=== PATIENT | male | born 1985 | race Caucasian/White ===

== ENCOUNTER 2020-11-07 16:57 | Inpatient (IN) | payer OTHER ==
[2020-11-07 20:46] VITALS: BMI 21.0
[2020-11-07] MEDS ORDERED: MENTHOL/PHENOL 1 EACH UD MM PRN (21:00)
[2020-11-07] MEDS ORDERED: NICOTINE POLACRILEX 2 MG GUM BUC PRN (21:00)
[2020-11-07] MEDS ORDERED: METHOCARBAMOL 500 MG TABLET PO PRN (21:00)
[2020-11-07] MEDS ORDERED: MAGNESIUM CITRATE 300 ML BOTTLE PO PRN (21:00)
[2020-11-07] MEDS ORDERED: IBUPROFEN 400 MG TABLET (FP) PO PRN (21:00)
[2020-11-07] MEDS ORDERED: ACETAMINOPHEN 325 MG TABLET (FP) PO PRN ×2 (21:00)
[2020-11-07] MEDS ORDERED: ONDANSETRON *ODT* 4 MG TABLET SL PRN (21:00)
[2020-11-07] MEDS ORDERED: BISMUTH SUBSALICYLATE 524 MG/30 ML PO PRN (21:00)
[2020-11-07] MEDS ORDERED: MAGNESIUM HYDROX 2400MG/30ML ORAL SUSPENSION 30 ML CUP PO PRN (21:00)
[2020-11-07] MEDS ORDERED: MAG HYDROX/AL HYDROX/SIMETH 30 ML UNIT-DOSE CUP PO PRN (21:00)
[2020-11-07] MEDS ORDERED: THIAMINE HCL 100 MG TABLET (FP) PO SCH (22:00)
[2020-11-07] MEDS ORDERED: MELATONIN 5 MG TABLETS PO SCH (22:00)
[2020-11-08] MEDS ORDERED: METHADONE HCL 5 MG TABLET PO SCH (08:15)
[2020-11-08] MEDS ORDERED: NICOTINE 14 MG/24 HOURS TOPICAL PATCH TD SCH (10:00)
[2020-11-08] MEDS ORDERED: PRENATAL VITAMINS W/ FOLIC ACID TABLET (FP) PO SCH (10:00)
[2020-11-08 10:47] LABS: HEMOGLOBIN 15.7 GM/dL (11.7-16.9); MCH 32.7 pg (25.7-33.7); MCHC 33.5 g/dl (32.0-35.9); MEAN CELL VOLUME 97.6 fl (80-96); PLATELET COUNT 195 10^3/uL (134-434); RBC 4.82 M/mm3 (4.00-5.60); RDW 13.5 % (11.9-15.9); WHITE BLOOD COUNT 5.9 K/mm3 (4.0-10.0)
[2020-11-08 10:48] LABS: ALBUMIN 3.5 g/dl (3.4-5.0); CALCIUM 8.6 mg/dL (8.5-10.1)
[2020-11-08 10:49] LABS: BLOOD UREA NITROGEN 15.4 mg/dL (7-18)
[2020-11-08 10:52] LABS: CREATININE 0.6 mg/dL (0.55-1.3)
[2020-11-08 10:53] LABS: BILIRUBIN,TOTAL 0.5 mg/dL (0.2-1)
[2020-11-08 13:17] VITALS: BP 116/72; PULSE 64; TEMP 96.1
== END 2020-11-08 13:42 | disposition home or self-care (01) | DRG 773 ==
LOC: YASAS 16:57 → UNDOADMIN 20:39 → Y3N 20:39
PROVIDERS: ADMIT Allergy & Immunology; ATTEND Allergy & Immunology
PROC: HZ2ZZZZ Detoxification Services for Substance Abuse Treatment (ICD-10-PCS; principal; 2020-11-07)
DX: F10.20 Alcohol dependence, uncomplicated (principal); F11.20 Opioid dependence, uncomplicated; F17.210 Nicotine dependence, cigarettes, uncomplicated; J42 Unspecified chronic bronchitis; J45.909 Unspecified asthma, uncomplicated; Z88.0 Allergy status to penicillin
CPT/HCPCS: 36415; 80053; 85027; 86780; 93005; 93010; C9803; U0003; U0005

== ENCOUNTER 2022-06-06 02:01 | Emergency (ER) | payer OTHER ==
[2022-06-06 02:10] VITALS: BP 119/73; PULSE 105; RESP 18; TEMP 97.6; BMI 23.0
[2022-06-06] MEDS ORDERED: TETANUS AND DIPHTHERIA TOXOID 0.5 ML DISP.SYRIN IM ONE (02:23)
[2022-06-06] MEDS ORDERED: DIPHTH,PERTUSS(ACELL),TET 0.5 ML DISP.SYRIN IM ONE (02:28)
== END 2022-06-06 02:46 | disposition left against medical advice (07) ==
LOC: JER 02:01
PROC: 3E0234Z Introduction of Serum, Toxoid and Vaccine into Muscle, Percutaneous Approach (ICD-10-PCS; principal; 2022-06-06)
DX: S81.811A Laceration without foreign body, right lower leg, initial encounter (principal); Y99.9 Unspecified external cause status
CPT/HCPCS: 99282-25

== ENCOUNTER 2022-06-06 02:54 | Emergency (ER) | payer OTHER ==
[2022-06-06 03:52] VITALS: BP 142/89; PULSE 75; RESP 18; TEMP 97.6; BMI 23.7
== END 2022-06-06 03:50 | disposition home or self-care (01) ==
LOC: JER 02:54
PROC: 0HQKXZZ Repair Right Lower Leg Skin, External Approach (ICD-10-PCS; principal; 2022-06-06)
DX: S81.811A Laceration without foreign body, right lower leg, initial encounter (principal); W26.0XXA Contact with knife, initial encounter
CPT/HCPCS: 99282-25

== ENCOUNTER 2023-09-11 13:25 | Emergency (ER) | payer OTHER ==
[2023-09-11 14:35] VITALS: TEMP 97.8; BMI 22.3
[2023-09-11 15:00] LABS: BASO % 0.5 % (0-2.0); EOS % 1.7 % (0-4.5); HEMOGLOBIN 15.2 GM/dL (11.7-16.9); LYMPH % 16.6 % (8-40); MCH 31.8 pg (25.7-33.7); MCHC 33.8 g/dl (32.0-35.9); MEAN CELL VOLUME 94.2 fl (80-96); MEAN PLT VOLUME 8.1 fl (7.5-11.1); MONO % 7.8 % (3.8-10.2); NEUT % 73.4 % (42.8-82.8); PLATELET COUNT 339 10^3/uL (134-434); RBC 4.77 M/mm3 (4.00-5.60); RDW 13.5 % (11.9-15.9); WHITE BLOOD COUNT 12.2 K/mm3 (4.0-10.0)
[2023-09-11 15:04] LABS: INR 0.99 (0.83-1.09); PROTHROMBIN TIME (PATIENT) 11.2 SEC (9.7-13.0)
[2023-09-11 15:07] LABS: ACTIVATED PTT 27.6 SECONDS (25.2-36.5)
[2023-09-11 15:16] LABS: POTASSIUM 4.1 mmol/L (3.5-5.1)
[2023-09-11 15:18] LABS: CALCIUM 9.3 mg/dL (8.5-10.1)
[2023-09-11 15:19] LABS: ALBUMIN 3.6 g/dl (3.4-5.0); BLOOD UREA NITROGEN 12.5 mg/dL (7-18); MAGNESIUM 2.2 mg/dL (1.8-2.4)
[2023-09-11 15:22] LABS: CREATININE 1.1 mg/dL (0.55-1.3)
[2023-09-11 15:24] LABS: BILIRUBIN,TOTAL 0.3 mg/dL (0.2-1)
[2023-09-11 15:25] LABS: PHOSPHOROUS 4.2 mg/dL (2.5-4.9)
[2023-09-11 16:01] VITALS: RESP 15
[2023-09-11 17:29] VITALS: BP 145/89; PULSE 78
[2023-09-11 17:45] LABS: PH,URINE 5.5 (5.0-8.0); URINE APPEARANCE CLEAR; URINE BILIRUBIN NEGATIVE (NEGATIVE); URINE COLOR YELLOW; URINE GLUCOSE (UA) NEGATIVE (NEGATIVE); URINE KETONE NEGATIVE (NEGATIVE); URINE LEUK ESTERASE NEGATIVE (NEGATIVE); URINE NITRITE NEGATIVE (NEGATIVE); URINE PROTEIN NEGATIVE (NEGATIVE); URINE UROBILINOGEN 0.2 mg/dL (0.2-1.0)
[2023-09-11 17:55] LABS: METHADONE, UR NEGATIVE (NEGATIVE); URINE AMPHETAMINES NEGATIVE (NEGATIVE); URINE BARBITURATES NEGATIVE (NEGATIVE); URINE BENZODIAZEPINES NEGATIVE (NEGATIVE)
[2023-09-11 18:25] LABS: COCAINE, UR POSITIVE (NEGATIVE); OPIATES, URI POSITIVE (NEGATIVE); PHENCYCLIDINE,URINE POSITIVE (NEGATIVE)
== END 2023-09-11 17:36 | disposition home or self-care (01) ==
LOC: JER 13:25
DX: R55 Syncope and collapse (principal); T40.1X1A Poisoning by heroin, accidental (unintentional), initial encounter
CPT/HCPCS: 36415; 70450-TC; 71045-TC-FY; 72125-TC; 80053; 80307; 81003; 83735; 84100; 84484; 85025; 85610; 85730; 87086; 93005; 93010; 99285-25